=== PATIENT | female | born 1945 | race Caucasian/White ===

== ENCOUNTER → 2017-03-29 | Outpatient (CLI) | payer MEDICARE ==
[2017-03-29 08:45] LABS: Appearance,Urine Cloudy (Clear); Bilirubin,Urine Negative (Negative); Glucose,Urine (UA) Negative (Negative); Ketones,Urine Negative (Negative); Leukocyte Esterase,Urine Moderate (Negative); Mucus,Urine Occasional /hpf; Nitrite,Urine Negative (Negative); Particle Count 3619; Protein,Urine Negative (Negative); RBC,Urine 3 /hpf (0-5); Specific Gravity,Urine 1.012 (1.001-1.035); Squamous Epithelial Cell,Urine 5 /hpf (0-4); UA Billing (MACRO vs. MICRO) MICRO; Urobilinogen,Urine <2.0 mg/dL (<2.0); WBC,Urine 3 /hpf (0-5)
[2017-03-29 08:48] LABS: Basophils % (A) 0 %; CH 30.3; CHCM 33.6; Eosinophils # (A) 0.1 k/uL (0-0.7); Eosinophils % (A) 1 %; HCT 44.4 % (34.0-46.0); HDW 2.77; HGB 14.4 gm/dL (11.4-16.0); Luc # (Auto) 0.17; Luc % (Auto) 2; Lymphocytes # (A) 1.4 k/uL (1.0-4.8); Lymphocytes % (A) 17 %; MCH 29.4 pg (25.0-35.0); MCHC 32.5 g/dL (31.0-37.0); MCV 90.5 fL (80.0-100.0); Mean Platelet Volume 8.6; Monocytes # (A) 0.4 k/uL (0-1.0); Monocytes % (A) 4 %; Neutrophils # (A) 6.5 k/uL (1.3-7.7); Neutrophils % (A) 76 %; RBC 4.91 m/uL (3.80-5.40); RDW 13.9 % (11.5-15.5); WBC 8.5 k/uL (3.8-10.6); WBC (Perox) 8.73
[2017-03-29 08:53] LABS: ALT 23 U/L (9-52); AST 20 U/L (14-36); Alkaline Phosphatase 90 U/L (38-126); Anion Gap 11 mmol/L; Blood Urea Nitrogen 13 mg/dL (7-17); Calcium 9.5 mg/dL (8.4-10.2); Carbon Dioxide 23 mmol/L (22-30); Chloride 108 mmol/L (98-107); Cholesterol 244 mg/dL (<200); Glucose 99 mg/dL (74-99); HDL Cholesterol 65 mg/dL (40-60); Non-African American GFR(MDRD) >60 (>60 ml/min/1.73 sqM); Potassium 4.2 mmol/L (3.5-5.1); Sodium 142 mmol/L (137-145); Total Bilirubin 0.7 mg/dL (0.2-1.3); Total Protein 7.3 g/dL (6.3-8.2); Triglycerides 122 mg/dL (<150)
--- NOTE | 2017-03-31 10:16 | MM ---
Reason for exam: screening (asymptomatic). Last mammogram was performed 2 years ago. History: Patient is postmenopausal and history of other cancer. Took hormonal contraceptives for 9 years beginning at age 21. Physical Findings: A clinical breast exam by your physician is recommended on an annual basis and results should be correlated with mammographic findings. MG Screening Mammo w CAD Bilateral CC and MLO view(s) were taken. Prior study comparison: March 18, 2015, bilateral MG screening mammo w CAD. March 06, 2013, bilateral digital screening mammo w/CAD. August 24, 2011, bilateral digital screening mammo w/CAD. The breast tissue is almost entirely fat. No significant changes when compared with prior studies. ASSESSMENT: Negative, BI-RAD 1 RECOMMENDATION: Routine screening mammogram of both breasts in 1 year.
== END | disposition home or self-care (01) ==
LOC: RADMAMWWP 07:59
PROVIDERS: ATTEND Internal Medicine
DX: Z12.31 Encounter for screening mammogram for malignant neoplasm of breast (principal); I10 Essential (primary) hypertension; E55.9 Vitamin D deficiency, unspecified
CPT/HCPCS: 80061; 80053; 85025; 81001; 82306; G0202

== ENCOUNTER → 2018-03-02 | Outpatient (CLI) | payer MEDICARE | END | disposition home or self-care (01) | LOC: LABWHC1 08:33 | PROVIDERS: ATTEND Internal Medicine | DX: E53.8 Deficiency of other specified B group vitamins (principal) | CPT/HCPCS: 36415; 82607 ==

== ENCOUNTER 2018-12-09 15:53 | Emergency (ER) | payer MEDICARE ==
[2018-12-09] MEDS ORDERED: MORPHINE SULFATE 4 MG/ML SYRINGE IM STA (16:30)
--- NOTE | 2018-12-09 16:50 | ED ---
Upper Extremity HPI - General Chief Complaint: Extremity Injury, Upper Stated Complaint: Shoulder injury Time Seen by Provider: 12/09/18 16:02 Source: patient, RN notes reviewed, old records reviewed Mode of arrival: ambulatory Limitations: no limitations - History of Present Illness Initial Comments: Patient is a 73-year-old female presents emergency room today with complaints of left shoulder pain and an inability to move the shoulder after falling off a tractor. Patient virtuallythe pill and the tractor tipped backward. She states she jumped off before the tractor landed on her. She states she landed on her left shoulder. She is here with her neighbor. She denies any peripheral paresthesias. Patient states that she has any pain with range of motion of the head. She denies any head or neck injury. Denies any other complaints related to this fall. - Related Data Home Medications Medication Instructions Recorded Confirmed Atenolol [Tenormin] 25 mg PO HS 02/08/14 12/09/18 Cholecalciferol [Vitamin D3] 1,000 unit PO DAILY 02/08/14 12/09/18 Cyanocobalamin [Vitamin B-12] 1,000 mcg PO DAILY 02/08/14 12/09/18 Lisinopril [Zestril] 10 mg PO DAILY 02/08/14 12/09/18 amLODIPine BESYLATE [Norvasc] 5 mg PO DAILY 02/08/14 12/09/18 cloNIDine HCL [Catapres] 0.1 mg PO QAM 02/08/14 12/09/18 Calcium/Magnesium 1 tab PO HS 12/09/18 12/09/18 Previous Rx's Medication Instructions Recorded HYDROcodone/APAP 5-325MG [[place] 1 tab PO Q6HR PRN #10 tab 12/09/18 5-325] Allergies Allergy/AdvReac Type Severity Reaction Status Date / Time aspirin Allergy Rash/Hives Verified 12/09/18 16:25 codeine Allergy Rash/Hives Verified 12/09/18 16:25 meperidine HCl [From Demerol] Allergy Rash/Hives Verified 12/09/18 16:25 Penicillins Allergy Rash/Hives Verified 12/09/18 16:25 Sulfa (Sulfonamide Allergy Rash/Hives Verified 12/09/18 16:25 Antibiotics) sodium penathol Allergy Anaphylaxis Uncoded 12/09/18 16:00 Review of Systems ROS Statement: Those systems with pertinent positive or pertinent negative responses have been documented in the HPI. ROS Other: All systems not noted in ROS Statement are negative. Past Medical History Past Medical History: Hypertension History of Any Multi-Drug Resistant Organisms: None Reported Past Surgical History: Tonsillectomy Additional Past Surgical History / Comment(s): Past Anesthesia/Blood Transfusion Reactions: Previous Problems w/ Anesthesia Additional Past Anesthesia/Blood Transfusion Reaction / Comment(s): ANAPHYLATIC REACTION TO SODIUM PENATHOL Past Psychological History: No Psychological Hx Reported Smoking Status: Never smoker Past Alcohol Use History: Rare Past Drug Use History: None Reported General Exam - General Exam Comments Initial Comments: Pleasant 73-year-old female. Alert and oriented 3. No significant distress. General: Well appearing, well nourished, in no distress. Oriented x 3, normal mood and affect . Ambulating without difficulty. Skin: Good turgor, no rash, unusual bruising or prominent lesions Hair: Normal texture and distribution. HEENT: Head: Normocephalic, atraumatic, no visible or palpable masses, depressions, or scaring. Eyes: Visual acuity intact, conjunctiva clear, sclera non-icteric, EOM intact, PERRL. Ears: EACs clear, TMs translucent & cone of light visualized. hearing intact. Nose: No external lesions, mucosa non-inflamed, septum and turbinates normal Mouth: Mucous membranes moist, no mucosal lesions. Teeth/Gums: No obvious caries or periodontal disease. No gingival inflammation or significant resorption. Pharynx: Mucosa non-inflamed, no tonsillar hypertrophy or exudate Neck: Supple, without lesions, bruits, or adenopathy, thyroid non-enlarged and non-tender Heart: No cardiomegaly or thrills; regular rate and rhythm, no murmur or gallop Lungs: Clear to auscultation and percussion Abdomen: Bowel sounds normal, no tenderness, organomegaly, masses, or hernia Back: Spine normal without deformity or tenderness, no CVA tenderness Extremities: No amputations or deformities. Patient is tender to palpation of the left shoulder. Inability to raise the shoulder greater than 10. She has normal sensation to the hand and full range of motion of the elbow. Peripheral pulses 2+ capillary refills less than 2 seconds. Normal car loader strength. Musculoskeletal: Normal gait and station. No misalignment, asymmetry, crepitation, defects, tenderness, masses, effusions, decreased range of motion, instability, atrophy or abnormal strength or tone in the head, neck, spine, ribs, pelvis or extremities. Neurologic: CN 2-12 normal. Sensation to pain, touch, and proprioception normal. DTRs normal in upper and lower extremities. No pathologic reflexes. Psychiatric: Oriented X3, intact recent and remote memory, judgment and insight, normal mood and affect. Limitations: no limitations Course Vital Signs 12/09/18 12/09/18 15:57 17:54 Temperature 97.9 F 98.4 F Pulse Rate 99 97 Respiratory 20 18 Rate Blood Pressure 162/80 185/74 O2 Sat by Pulse 96 96 Oximetry Procedures - Orthopedic Splinting/Casting Injury #1 Side: left Upper Extremity Injury Location: shoulder Upper Extremity Immobilizer: sling/shoulder immobilizer Medical Decision Making - Medical Decision Making 5-year-old female presents emergency department today after falling off retractor. She states that she complains of left shoulder pain. She has significant pain with any range of motion. Denies any head or neck injury in either extremity injuries. Patient left shoulder x-ray shows evidence of a nondisplaced humeral fracture. Patient is placed in a sitting given a referral for orthopedic. She was given IM pain medication in ED as well as prescription for [place]. Maps report and opiate consent was completed. - Radiology Data Radiology results: report reviewed Left shoulder x-ray shows nondisplaced humeral neck fracture. Disposition Clinical Impression: Closed fracture of left proximal humerus Disposition: HOME SELF-CARE Condition: Good Additional Instructions: Follow-up with primary care doctor. Return to emergency department if any alarming signs or symptoms occur. Follow-up with orthopedic doctor on Tuesday. Patient should take the pain medicine. This sleep upright with pillows stacked around 2. Wear the sling at all times except to shower. Prescriptions: HYDROcodone/APAP 5-325MG [[place] 5-325] 1 tab PO Q6HR PRN #10 tab PRN Reason: Pain Is patient prescribed a controlled substance at d/c from ED?: Yes If prescribed controlled substance>3 days was MAPS reviewed?: Prescribed <3 Days Referrals: Jerry Poon MD [Primary Care Provider] - 1-2 days Alonso Villanueva MD [STAFF PHYSICIAN] - 1-2 days Time of Disposition: 17:31
--- NOTE | 2018-12-09 17:01 | XR ---
EXAMINATION TYPE: XR shoulder complete LT DATE OF EXAM: 12/09/2018 COMPARISON: NONE HISTORY: Shoulder pain TECHNIQUE: 3 views FINDINGS: There is a nondisplaced humeral neck fracture. There is no dislocation. Scapula appears int act. IMPRESSION: Nondisplaced humeral neck fracture.
[2018-12-09 17:56] VITALS: BP 185/74; PULSE 97; RESP 18; TEMP 98.4
== END 2018-12-09 17:54 | disposition home or self-care (01) ==
LOC: EC 15:53
DX: S42.215A Unspecified nondisplaced fracture of surgical neck of left humerus, initial encounter for closed fracture (principal); I10 Essential (primary) hypertension; Z79.899 Other long term (current) drug therapy; Z88.0 Allergy status to penicillin; Z88.2 Allergy status to sulfonamides; Z88.5 Allergy status to narcotic agent; Z88.6 Allergy status to analgesic agent; Z88.8 Allergy status to other drugs, medicaments and biological substances; W17.89XA Other fall from one level to another, initial encounter; Y92.828 Other wilderness area as the place of occurrence of the external cause
CPT/HCPCS: 73030; 99284; 96372; L3670; J2270

== ENCOUNTER → 2019-06-02 | Outpatient (CLI) | payer MEDICARE ==
--- NOTE | 2019-06-02 17:14 | MR ---
EXAMINATION TYPE: MR knee RT wo con DATE OF EXAM: 06/02/2019 COMPARISON: None HISTORY: Pain in right knee TECHNIQUE: Multiplanar, multisequence imaging of the right knee is performed without IV contrast. FINDINGS: The anterior and posterior cruciate ligaments are intact. There is mild knee joint effusion. There is vertical and horizontal defect through the posterior horn medial meniscus extending to the inferior surface. There is small horizontal tear of the posterior horn of the lateral meniscus. The collateral ligaments are intact. Joint spaces are fairly normal. There is no evidence of a fractu re. IMPRESSION: No evidence of ligamentous tear. No fracture. Knee joint effusion. There are tears of the posterior horn of the lateral and medial menisci. No sign ificant joint space narrowing.
== END | disposition home or self-care (01) ==
LOC: RADMRIMAIN 11:45
PROVIDERS: ATTEND Internal Medicine
DX: S83.281A Other tear of lateral meniscus, current injury, right knee, initial encounter (principal); S83.241A Other tear of medial meniscus, current injury, right knee, initial encounter

== ENCOUNTER → 2020-03-31 | Outpatient (CLI) | payer MEDICARE ==
--- NOTE | 2020-04-01 09:03 | MM ---
Reason for exam: screening (asymptomatic). Last mammogram was performed 3 years ago. History: Patient is postmenopausal and history of other cancer. Took hormonal contraceptives for 9 years beginning at age 21. Physical Findings: A clinical breast exam by your physician is recommended on an annual basis and results should be correlated with mammographic findings. MG Screening Mammo w CAD Bilateral CC and MLO view(s) were taken. Prior study comparison: March 29, 2017, bilateral MG screening mammo w CAD. March 18, 2015, bilateral MG screening mammo w CAD. The breast tissue is almost entirely fat. Stable benign calcifications in the right breast. There is no discrete abnormality. No significant changes when compared with prior studies. ASSESSMENT: Benign, BI-RAD 2 RECOMMENDATION: Routine screening mammogram of both breasts in 1 year.
== END | disposition home or self-care (01) ==
LOC: RADMAMWWP 08:58
PROVIDERS: ATTEND Internal Medicine
DX: Z12.31 Encounter for screening mammogram for malignant neoplasm of breast (principal)
CPT/HCPCS: 77067

== ENCOUNTER 2022-08-11 13:10 | Emergency (ER) | payer MEDICARE ==
[2022-08-11 14:11] VITALS: TEMP 98
[2022-08-11] MEDS ORDERED: methylPREDNISolone SOD SUCCI 125 MG/2 ML VIAL IV STA (16:05)
[2022-08-11] MEDS ORDERED: KETOROLAC 15 MG/ML 1 ML VIAL IVP STA (16:05)
[2022-08-11 18:32] LABS: ALT 16 U/L (4-34); AST 20 U/L (14-36); African American GFR (CKD) >90 (>60 ml/min/1.73 sqM); Albumin 4.2 g/dL (3.5-5.0); Alkaline Phosphatase 109 U/L (38-126); Anion Gap 12 mmol/L; Blood Urea Nitrogen 17 mg/dL (7-17); Calcium 9.4 mg/dL (8.4-10.2); Carbon Dioxide 25 mmol/L (22-30); Chloride 103 mmol/L (98-107); Glucose 118 mg/dL (74-99); Non-African American GFR(CKD) 88 (>60 ml/min/1.73 sqM); Sodium 140 mmol/L (137-145); Total Bilirubin 0.5 mg/dL (0.2-1.3); Total Protein 7.3 g/dL (6.3-8.2)
[2022-08-11 18:33] LABS: Appearance,Urine Cloudy (Clear); Bacteria,Urine Moderate /hpf; Bilirubin,Urine Negative (Negative); Blood,Urine Negative (Negative); Color,Urine Yellow; Glucose,Urine (UA) Negative (Negative); Hyaline Casts,Urine 3 /lpf (0-2); Ketones,Urine Negative (Negative); Leukocyte Esterase,Urine Large (Negative); Mucus,Urine Occasional /hpf; Nitrite,Urine Negative (Negative); Protein,Urine Trace (Negative); RBC,Urine 10 /hpf (0-5); Specific Gravity,Urine 1.016 (1.001-1.035); Squamous Epithelial Cell,Urine 7 /hpf (0-4); Urobilinogen,Urine <2.0 mg/dL (<2.0); WBC,Urine 6 /hpf (0-5)
[2022-08-11 18:37] LABS: Basophils % (A) 0 %; Eosinophils # (A) 0.1 k/uL (0-0.7); Eosinophils % (A) 1 %; HCT 36.9 % (34.0-46.0); HGB 12.6 gm/dL (11.4-16.0); Lymphocytes # (A) 1.7 k/uL (1.0-4.8); Lymphocytes % (A) 15 %; MCH 30.2 pg (25.0-35.0); MCHC 34.3 g/dL (31.0-37.0); Mean Platelet Volume 8.3; Monocytes # (A) 0.5 k/uL (0-1.0); Monocytes % (A) 4 %; Neutrophils # (A) 8.9 k/uL (1.3-7.7); Neutrophils % (A) 79 %; Platelet Count 557 k/uL (150-450); RBC 4.19 m/uL (3.80-5.40); RDW 12.2 % (11.5-15.5); WBC 11.3 k/uL (3.8-10.6)
[2022-08-11 18:43] VITALS: RESP 18
[2022-08-11 18:53] LABS: C Reactive Protein 17.3 mg/dL (<1.0)
[2022-08-11] MEDS ORDERED: CIPROFLOXACIN HCL 500 MG TAB PO STA (19:32)
[2022-08-11 19:35] LABS: Erythrocyte Sedimentation Rate 101 mm/hr (0-20)
--- NOTE | 2022-08-11 19:40 | ED ---
General Adult HPI - General Chief complaint: Recheck/Abnormal Lab/Rx Stated complaint: fever, weakness Time Seen by Provider: 08/11/22 15:48 Source: patient Mode of arrival: ambulatory Limitations: no limitations - History of Present Illness Initial comments: This 77-year-old female presents with complaint of pain to all of her joints. She states that this affects essentially all of her joints in her body but seems to spare her neck and back. She followed up with her primary care and they did blood work which she brings him and this does show a significantly elevation of the inflammatory markers with the CRP at 109 and ESR at 91 on 07/30/2022. She denies any fevers or chills. She apparently was treated for a urinary tract infection at that time as well. She is denying any urinary symptomatology currently. She denies any history of rheumatoid arthritis or lupus or any other known inflammatory condition. She was told by primary care that she would need to follow up with the roll scale worker. The primary care apparently has not set this up as of yet. She denies any actual injuries. No other complaints or modifying factors. - Related Data Home Medications Medication Instructions Recorded Confirmed amLODIPine BESYLATE [Norvasc] 5 mg PO BID 02/08/14 08/11/22 atenoloL [Tenormin] 25 mg PO HS 02/08/14 08/11/22 cloNIDine HCL [Catapres] 0.1 mg PO BID 02/08/14 08/11/22 Acetaminophen Tab [Tylenol Tab] 1,000 mg PO Q6HR PRN 08/11/22 08/11/22 hydroCHLOROthiazide 12.5 mg PO DAILY 08/11/22 08/11/22 lisinopriL [Zestril] 20 mg PO DAILY 08/11/22 08/11/22 Previous Rx's Medication Instructions Recorded Ciprofloxacin HCl [Cipro] 500 mg PO Q12HR #20 tablet 08/11/22 predniSONE 0 mg PO DIRECTED #45 tab 08/11/22 Allergies Allergy/AdvReac Type Severity Reaction Status Date / Time aspirin Allergy Rash/Hives Verified 08/11/22 17:55 codeine Allergy Rash/Hives Verified 08/11/22 17:55 meperidine HCl [From Demerol] Allergy Rash/Hives Verified 08/11/22 17:55 Penicillins Allergy Rash/Hives Verified 08/11/22 17:55 Sulfa (Sulfonamide Allergy Rash/Hives Verified 08/11/22 17:55 Antibiotics) sodium penathol Allergy Anaphylaxis Uncoded 08/11/22 17:55 Review of Systems ROS Statement: Those systems with pertinent positive or pertinent negative responses have been documented in the HPI. ROS Other: All systems not noted in ROS Statement are negative. Past Medical History Past Medical History: Hypertension History of Any Multi-Drug Resistant Organisms: None Reported Past Surgical History: Tonsillectomy Additional Past Surgical History / Comment(s): Past Anesthesia/Blood Transfusion Reactions: Previous Problems w/ Anesthesia Additional Past Anesthesia/Blood Transfusion Reaction / Comment(s): ANAPHYLATIC REACTION TO SODIUM PENATHOL Past Psychological History: No Psychological Hx Reported Smoking Status: Never smoker Past Alcohol Use History: Rare Past Drug Use History: None Reported General Exam - General Exam Comments Initial Comments: GENERAL: The patient is well nourished and well hydrated. VITAL SIGNS: Heart rate, blood pressure, respiratory rate reviewed as recorded in nurse's notes. EYES: Pupils are round and reactive. Extraocular movements are intact. No conjunctival / lid redness or swelling. ENT: No external evidence of injury, swelling, or ecchymosis. Airway is patent. Throat is clear. NECK: Nontender. No swelling or evidence of injury. No subcutaneous emphysema. T rachea is midline. No thyroid mass. HEART: Regular rate and rhythm. Good peripheral pulses. LUNGS/CHEST: Breath sounds clear and equal bilaterally. No rales, rhonchi, or wheezes. No ecchymosis, subcutaneous emphysema, or tenderness. ABDOMEN: Abdomen soft without tenderness. No palpable masses or organomegaly. No peritoneal signs. No abdominal wall swelling or ecchymosis. EXTREMITIES: There is minimal tenderness noted over most joints but there is no joint swelling identified. Normal muscle tone and function. No thoracolumbar tenderness. NEUROLOGIC: Sensation is grossly intact. Cranial nerve exam reveals face is symmetrical, tongue is midline, speech is clear. SKIN: No abrasions or ecchymosis is noted. No induration or masses noted. PSYCHIATRIC: Alert and oriented. Appropriate behavior and judgment. Limitations: no limitations Course Vital Signs 08/11/22 08/11/22 14:08 18:41 Temperature 98 F Pulse Rate 90 84 Respiratory 20 18 Rate Blood Pressure 141/68 158/80 O2 Sat by Pulse 98 97 Oximetry Medical Decision Making - Medical Decision Making The patient was seen and examined. All diagnostics are reviewed. The CRP is elevated but much lower than previous labs by primary care. White blood cell count is slightly elevated. The urinalysis does show slight infection. Patient is treated with ciprofloxacin. A de-escalating dose of prednisone also was prescribed. She receives Solu-Medrol and Toradol while in the ER and had some moderate relief. It is felt as though she likely does have an undiagnosed rheumatologic condition and would benefit from following up with rheumatology for further differentiation. She is agreeable with this plan and rheumatology follow-up instructions are given as well. Return parameters are discussed. Close follow-up recommended his primary care and rheumatology. - Lab Data Result diagrams: 08/11/22 17:56 08/11/22 17:56 Lab Results 08/11/22 08/11/22 08/11/22 Range/Units 17:56 17:56 17:56 WBC 11.3 H (3.8-10.6) k/uL RBC 4.19 (3.80-5.40) m/uL Hgb 12.6 (11.4-16.0) gm/dL Hct 36.9 (34.0-46.0) % MCV 88.0 (80.0-100.0) fL MCH 30.2 (25.0-35.0) pg MCHC 34.3 (31.0-37.0) g/dL RDW 12.2 (11.5-15.5) % Plt Count 557 H (150-450) k/uL MPV 8.3 Neutrophils % 79 % Lymphocytes % 15 % Monocytes % 4 % Eosinophils % 1 % Basophils % 0 % Neutrophils # 8.9 H (1.3-7.7) k/uL Lymphocytes # 1.7 (1.0-4.8) k/uL Monocytes # 0.5 (0-1.0) k/uL Eosinophils # 0.1 (0-0.7) k/uL Basophils # 0.0 (0-0.2) k/uL ESR 101 H (0-20) mm/hr Sodium 140 (137-145) mmol/L Potassium 4.0 (3.5-5.1) mmol/L Chloride 103 (98-107) mmol/L Carbon Dioxide 25 (22-30) mmol/L Anion Gap 12 mmol/L BUN 17 (7-17) mg/dL Creatinine 0.60 (0.52-1.04) mg/dL Est GFR (CKD-EPI)AfAm >90 (>60 ml/min/1.73 sqM) Est GFR (CKD-EPI)NonAf 88 (>60 ml/min/1.73 sqM) Glucose 118 H (74-99) mg/dL Calcium 9.4 (8.4-10.2) mg/dL Total Bilirubin 0.5 (0.2-1.3) mg/dL AST 20 (14-36) U/L ALT 16 (4-34) U/L Alkaline Phosphatase 109 (38-126) U/L C-Reactive Protein 17.3 H (<1.0) mg/dL Total Protein 7.3 (6.3-8.2) g/dL Albumin 4.2 (3.5-5.0) g/dL TSH 1.390 (0.465-4.680) mIU/L Urine Color Yellow Urine Appearance Cloudy H (Clear) Urine pH 6.0 (5.0-8.0) Ur Specific [place] 1.016 (1.001-1.035) Urine Protein Trace H (Negative) Urine Glucose (UA) Negative (Negative) Urine Ketones Negative (Negative) Urine Blood Negative (Negative) Urine Nitrite Negative (Negative) Urine Bilirubin Negative (Negative) Urine Urobilinogen <2.0 (<2.0) mg/dL Ur Leukocyte Esterase Large H (Negative) Urine RBC 10 H (0-5) /hpf Urine WBC 6 H (0-5) /hpf Ur Squamous Epith Cells 7 H (0-4) /hpf Urine Bacteria Moderate H (None) /hpf Hyaline Casts 3 H (0-2) /lpf Urine Mucus Occasional H (None) /hpf Disposition Clinical Impression: Polyarthritis, Elevated C-reactive protein (CRP), Elevated erythrocyte sedimentation rate, Urinary tract infection Disposition: HOME SELF-CARE Condition: Good Instructions (If sedation given, give patient instructions): Swollen Joint (ED), Urinary Tract Infection in Women (ED) Additional Instructions: Please also take tylenol as needed for pain. Please follow up with a roll scale worker as soon as possible. Prescriptions: Ciprofloxacin HCl [Cipro] 500 mg PO Q12HR #20 tablet predniSONE 0 mg PO DIRECTED #45 tab Is patient prescribed a controlled substance at d/c from ED?: No Referrals: Enoch Shen MD [Primary Care Provider] - 1-2 days Nga Templeton MD [STAFF PHYSICIAN] - As Soon As Possible Time of Disposition: 19:40
[2022-08-11 19:53] VITALS: BP 166/71; PULSE 85
== END 2022-08-11 19:58 | disposition home or self-care (01) ==
LOC: EC 13:10
DX: M13.0 Polyarthritis, unspecified (principal); N39.0 Urinary tract infection, site not specified; R79.82 Elevated C-reactive protein (CRP); R70.0 Elevated erythrocyte sedimentation rate; I10 Essential (primary) hypertension; Z79.899 Other long term (current) drug therapy; Z79.82 Long term (current) use of aspirin; Z88.0 Allergy status to penicillin; Z88.2 Allergy status to sulfonamides; Z88.5 Allergy status to narcotic agent; Z88.4 Allergy status to anesthetic agent
CPT/HCPCS: 36415; 80053; 85652; 84443; 85025; 86140; 81001; 99285; 96374; 96375; J2930; J1885